=== PATIENT | female | born 1975 | race Two or more races ===

== ENCOUNTER 2021-10-20 23:02 | Emergency (ER) | payer OTHER ==
[~2021-10-20] VITALS: Ht 162.6 cm; Wt 65.3 kg
[2021-10-21] MEDS ORDERED: diphenhydrAMINE HCL 50 MG CAPSULE ONE (01:22)
[2021-10-21] MEDS ORDERED: predniSONE 20 MG TABLET ONE (01:22)
[2021-10-21] MEDS ORDERED: CEPHALEXIN MONOHYDRATE 500 MG CAPSULE PO ONE ×2 (01:22→01:30)
[2021-10-21] MEDS ORDERED: predniSONE 20 MG TABLET PO ONE (01:30)
[2021-10-21] MEDS ORDERED: diphenhydrAMINE HCL 25 MG CAPSULE PO ONE (01:30)
[2021-10-21] MEDS ORDERED: TRIA15OI2 TP (01:54)
[2021-10-21] MEDS ORDERED: DOXY100C2 PO (01:54)
--- NOTE | 2021-10-21 02:01 | NUR ---
Patient discharged to home in stable condition. Written and verbal after care instructions given. Patient verbalizes understanding of instruction. RX given
[2021-10-21 02:02] VITALS: BP 121/70
== END 2021-10-21 02:03 | disposition home or self-care (01) ==
LOC: ER 23:06
DX: R22.42 Localized swelling, mass and lump, left lower limb (principal); M25.572 Pain in left ankle and joints of left foot
CPT/HCPCS: 99283; J7512; Q0163